=== PATIENT | female | born 1990 | race Caucasian/White ===

== ENCOUNTER 2018-05-16 22:19 | Emergency (ER) | payer SELFPAY ==
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
[2018-05-16 22:30] VITALS: BP 120/99
== END 2018-05-16 22:31 ==
DX: Z02.89 Encounter for other administrative examinations (principal)